=== PATIENT | female | born 1975 | race Two or more races ===

== ENCOUNTER → 2023-11-26 06:28 | Day surgery (SDC) | payer OTHER, SELFPAY | LOC: GI 06:28 | PROVIDERS: ATTENDING PHYSICIAN Internal Medicine Gastroenterology | DX: Z12.11 Encounter for screening for malignant neoplasm of colon (principal); K50.812 Crohn's disease of both small and large intestine with intestinal obstruction; K63.89 Other specified diseases of intestine; K52.89 Other specified noninfective gastroenteritis and colitis; K62.89 Other specified diseases of anus and rectum | CPT/HCPCS: 45380; 88305 ==